=== PATIENT | female | born 1975 | race Two or more races ===

== ENCOUNTER 2017-09-01 16:06 | Outpatient (CLI) | payer OTHER ==
[~2017-09-01 16:06] MED LIST: METH500T14; [UNRECOGNIZED DRUG - CODE]
[2017-09-01 17:36] LABS: FREE T4 (FREE THYROXINE) 1.05 ng/dL (0.76-1.46); THYROID STIMULATING HORMONE 0.69 uIU/mL (0.34-3.74)
== END 2017-09-01 20:43 | disposition home or self-care (01) ==
LOC: MLB 16:06
PROVIDERS: ATTEND Family Medicine
DX: R45.83 Excessive crying of child, adolescent or adult (principal)
CPT/HCPCS: 36415; 84439; 84443

== ENCOUNTER 2017-11-03 21:23 | Emergency (ER) | payer OTHER ==
[~2017-11-03] VITALS: Ht 167.6 cm; Wt 97.5 kg
--- NOTE | 2017-11-03 21:39 | NUR ---
Patient to OF. RN evaluating patient.
[2017-11-03 21:55] VITALS: BP 143/88
--- NOTE | 2017-11-03 21:55 | NUR ---
PATIENT PRESENTS TO ED WITH C/O VOMITTING AND DIZZINESS X 1 DAY PT SKIN IS PINK/WARM/DRY; AAOX4 WITH EVEN AND STEADY GAIT; LUNGS CLEAR BL; HR EVEN AND REGULAR; PT DENIES ANY FEVER, CP, SOB, OR COUGH AT THIS TIME; PATIENT STATES PAIN OF 8/10 AT THIS TIME; VSS; PATIENT POSITIONED FOR COMFORT; HOB ELEVATED; BEDRAILS UP X2; BED DOWN. ER MD MADE AWARE OF PT STATUS.
[2017-11-03] MEDS ORDERED: ONDANSETRON 4 MG/2 ML VIAL IVP ONE (22:35)
[2017-11-03] MEDS ORDERED: NACL 0.9% 1,000 ML IV ONE (22:35)
[2017-11-03] MEDS ORDERED: KETOROLAC 30 MG/ML VIAL IVP ONE (22:35)
[2017-11-03 22:37] VITALS: BP 143/88
[2017-11-03 23:24] LABS: APPEARANCE,URINE SL CLOUDY (CLEAR); BILIRUBIN,URINE NEGATIVE (NEGATIVE); BLOOD, URINE TRACE-I (NEGATIVE); COLOR,URINE YELLOW (YELLOW); LEUKOCYTE ESTERASE ,URINE NEGATIVE (NEGATIVE); NITRITE, URINE NEGATIVE (NEGATIVE); PH,URINE 6.5 (5.0-9.0); UGLUCOSE NEGATIVE (NEGATIVE)
[2017-11-03 23:29] LABS: ALBUMIN 3.5 g/dL (3.4-5.0); ANION GAP 11.2 (8-16); CARBON DIOXIDE 25.8 mmol/L (21-32); TOTAL BILIRUBIN 0.3 mg/dL (0.0-1.0)
[2017-11-03 23:57] LABS: RBC,URINE 11-20 (MOD) /HPF (0-5); WBC,URINE 0-5 (RARE) /HPF (0-5)
--- NOTE | 2017-11-04 00:39 | NUR ---
Patient discharged with v/s stable. Written and verbal after care instructions given and explained. Patient verbalized understanding. Ambulatory with steady gait. All questions addressed prior to discharge. Advised to follow up with PMD. DISCHARGED BY DR VELÁSQUEZ
== END 2017-11-04 00:35 | disposition home or self-care (01) ==
LOC: MED 21:23
DX: S33.9XXA Sprain of unspecified parts of lumbar spine and pelvis, initial encounter (principal); Z79.899 Other long term (current) drug therapy; X58.XXXA Exposure to other specified factors, initial encounter; Y93.89 Activity, other specified; Y92.89 Other specified places as the place of occurrence of the external cause; Y99.8 Other external cause status
CPT/HCPCS: 36415; 80053; 81001; 81025; 83690; 96361; 96374; 96375; 99284; J1885; J2405; J7030

== ENCOUNTER 2018-01-20 04:30 | Inpatient (IN) | payer OTHER ==
[~2018-01-20] VITALS: Ht 167.6 cm; Wt 96.6 kg
[2018-01-20 04:37] VITALS: BP 148/89
--- NOTE | 2018-01-20 04:45 | NUR ---
PT.AMBULATED TO ER BED 10
[2018-01-20] MEDS ORDERED: KETOROLAC 30 MG/ML VIAL IVP ONE (04:50)
[2018-01-20] MEDS ORDERED: NACL 0.9% 500 ML IV ONE (04:50)
[2018-01-20] MEDS ORDERED: ONDANSETRON 4 MG/2 ML VIAL IVP ONE (04:50)
--- NOTE | 2018-01-20 05:00 | NUR ---
Dr. Bautista evaluating patient.
[2018-01-20] MEDS ORDERED: ONDANSETRON 4 MG/2 ML VIAL IM/IVP PRN (05:30)
[2018-01-20] MEDS ORDERED: HYDROcodone/APAP 7.5/325 MG 1 TAB PO PRN (05:30)
[2018-01-20] MEDS ORDERED: NACL 0.9% 1,000 ML IV SCH (05:30)
[2018-01-20] MEDS ORDERED: DOCUSATE SODIUM 100 MG GELCAP PO PRN (05:30)
[2018-01-20] MEDS ORDERED: KETOROLAC 30 MG/ML VIAL IVP PRN (05:30)
[2018-01-20] MEDS ORDERED: ACETAMINOPHEN 325 MG TAB PO PRN (05:30)
[2018-01-20] MEDS ORDERED: MORPHINE SULFATE 2 MG/ML SYR IVP PRN (05:30)
[2018-01-20 05:40] LABS: BASOPHILS # (AUTO) 0.2 K/uL (0.00-0.22); EOSINOPHILS # (AUTO) 0.2 K/uL (0-0.4); EOSINOPHILS % (AUTO) 3.2 % (0.0-4.0); HEMATOCRIT 36.1 % (36-48); HEMOGLOBIN 11.6 g/dL (12.0-16.0); LYMPHOCYTES # (AUTO) 2.8 K/uL (2.5-16.5); LYMPHOCYTES % (AUTO) 36.5 % (20.5-51.1); MEAN CORPUSCULAR HEMOGLOBIN 26 pg (27-31); MEAN CORPUSCULAR HGB CONC 32 g/dL (33-37); MEAN CORPUSCULAR VOLUME 80 fL (80-94); MONOCYTES # (AUTO) 0.6 K/uL (0.8-1.0); MONOCYTES % (AUTO) 7.9 % (1.7-9.3); NEUTROPHILS # (AUTO) 3.9 K/uL (1.8-7.7); NEUTROPHILS % (AUTO) 50.4 % (42.2-75.2); PLATELET COUNT (AUTO) 262 K/uL (140-450); RED BLOOD CELL COUNT(AUTO) 4.55 MIL/uL (4.20-5.40); RED CELL DISTRIBUTION WIDTH 13.8 % (11.6-13.7)
--- NOTE | 2018-01-20 05:46 | NUR ---
42/f BIB FAMILY MEMBER D/T ABDOMINAL PAIN RADIATING TO HER LEFT SIDE. PATIENT STATES HAVING PAIN SINCE WEDNESDAY NIGHT AFTER DINNER ACCOMPANIED BY NAUSEA AND DIARRHEA X1DAY. PATIENT VISITED PCP EARLIER TODAY BUT WAS UNABLE TO GET LAB WORK AND TESTING DONE AND CAME IN TO ED D/T WORSENING PAIN. PATIENT DENIES CRAMPING BUT STATES HAVING A MENSTRUAL FLOW OF 3 WEEKS. MD AT BEDSIDE. WILL CONTINUE TO MONITOR.
[2018-01-20] MEDS ORDERED: TRAM50TA1 PO (05:53)
[2018-01-20 05:58] LABS: ANION GAP 10.8 (8-16); CARBON DIOXIDE 27.2 mmol/L (21-32); TOTAL BILIRUBIN 0.2 mg/dL (0.0-1.0)
[2018-01-20 06:10] LABS: WHITE BLOOD COUNT (AUTO) 7.7 K/uL (4.8-10.8)
--- NOTE | 2018-01-20 07:00 | NUR ---
RECEIVED BEDSIDE REPORT FROM PATCH PRESS OPERATOR NURSE. PATIENT IS ALERT AND AWAKE X4. CURRENTLY RESTING COMFORTABLY WITH AND DAUGHTER AT BEDSIDE. NO S/S OF RESPIRATORY DISTRESS. IV SITE ON RIGHT WRIST, CLEAN, DRY AND INTACT. SKIN INTACT. ABD IS ROUND, SOFT, AND TENDER TO TOUCH IN MIDEPIGASTRIC REGION, ACTIVE BOWEL SOUNDS PRESENT. PATIENT IS NPO D/T CT SCAN W CONTRAST. WILL CONTINUE TO MONITOR. CALL LIGHT WITHIN REACH AND BED IN LOW POSITION.
[2018-01-20 07:21] LABS: APPEARANCE,URINE CLEAR (CLEAR); BILIRUBIN,URINE NEGATIVE (NEGATIVE); BLOOD, URINE 1+ (NEGATIVE); COLOR,URINE YELLOW (YELLOW); LEUKOCYTE ESTERASE ,URINE NEGATIVE (NEGATIVE); NITRITE, URINE NEGATIVE (NEGATIVE); PH,URINE 5.5 (5.0-9.0); UGLUCOSE NEGATIVE (NEGATIVE)
[2018-01-20 08:00] VITALS: BP 127/70
--- NOTE | 2018-01-20 08:00 | NUR ---
PATIENT HAS CT ABDOMEN WITH CONTRAST PENDING, NEED 20 GAUGE IV LINE PER RADIOLOGIST FOR THE CONTRAST DYE. ATTEMPTED X2 TO INSERT NEW IV LINE WITH 20 GAUGE, BOTH ATTEMPTS FAILED. HAD ANOTHER NURSE ON UNIT ATTEMPT TO INSERT NEW IV LINE X1, ATTEMPT FAILED. PATIENT TOLERATED PROCEDURES WELL. PATIENT IS HARD STICK. WILL NOTIFY MD IF CT WITH CONTRAST IS NEEDED OR IF WE CAN PERFORM CT WITHOUT CONTRAST. WILL CONTINUE TO MONITOR.
[2018-01-20 08:40] LABS: PROTHROMBIN TIME 10.3 secs (10.8-13.4)
[2018-01-20 10:00] LABS: RBC,URINE 3-10 (FEW) /HPF (0-5); WBC,URINE 0-5 (RARE) /HPF (0-5)
--- NOTE | 2018-01-20 10:00 | NUR ---
PATIENT LYING IN BED SLEEPING. NO DISTRESS NOTED. DENIES ANY PAIN. SAFETY MEASURES IN PLACE, CALL LIGHT WITHIN REACH. WILL CONTINUE TO MONITOR.
[2018-01-20 10:04] LABS: BARBITURATE, URINE NEGATIVE ng/ml (NEG <=200); BENZODIAZEPINE, URINE NEGATIVE ng/mL (NEG <=200); CANNABINOID, URINE NEGATIVE ng/mL (NEG <=50); COCAINE, URINE NEGATIVE ng/mL (NEG <=300); OPIATE, URINE NEGATIVE ng/mL (NEG <=2000); PHENCYCLIDINE SCREEN,URINE NEGATIVE ng/mL (NEG <=25)
[2018-01-20 10:08] LABS: MAGNESIUM 1.9 mg/dL (1.8-2.4)
[2018-01-20 10:09] LABS: THYROID STIMULATING HORMONE 2.91 uIU/mL (0.34-3.74)
--- NOTE | 2018-01-20 12:39 | NUR ---
PATIENT HAS BEEN SCREENED AND CATEGORIZED MODERATE NUTRITION RISK. PATIENT WILL BE SEEN WITHIN 3-5 DAYS OF ADMISSION. 01/22/18 - 01/24/[address]
--- NOTE | 2018-01-20 15:38 | NUR ---
GENERAL I FARMWORKER WAS ABLE TO START NEW IV LINE ON LEFT AC #20 ON SECOND ATTEMPT. RADIOLOGY CALLED VIA PHONE TO LET THEM KNOW THAT CT ABD CONSENTS SIGNED AND THAT PATIENT WAS ALL SE TO GO. RADIOLOGIST SAID HE WAS BUSY AT ER AT THIS TIME AND WILL COME WHEN AVAILABLE. WILL CONTINUE TO MONITOR.
[2018-01-20 16:00] VITALS: BP 137/79
--- NOTE | 2018-01-20 18:00 | NUR ---
PATIENT SITTING IN BED WITH FAMILY MEMBERS AT BEDSIDE. NO DISTRESS. PAIN WITHIN TOLERABLE. CONDITION UNCHANGED. WILL CONTINUE TO MONITOR.
--- NOTE | 2018-01-20 19:34 | NUR ---
REPORT GIVEN TO REINFORCING IRON AND REBAR WORKERS NURSE FOR CONTINUITY OF CARE. PATIENT IS IN STABLE CONDITION.
--- NOTE | 2018-01-20 19:36 | NUR ---
RECEIVED REPORT FROM NIGHT RN.PT RESTING IN BED. AAOX4. NO S/S OF ACUTE DISTRESS. PT DENIES PAIN. IV SITE PATENT AND INTACT. CALL LIGHT WITHIN REACH. SAFETY MEASURES ENSURED. WILL CONTINUE TO MONITOR.
[2018-01-20 20:00] VITALS: BP 137/78
[2018-01-20] MEDS: NACL 0.9% 1,000 ML IV SCH (20:59)
[2018-01-20] MEDS: metroNIDAZOLE 500 MG/NS PREMIX 100 ML IV SCH (21:00)
[2018-01-20] MEDS: LEVOFLOXACIN 750 MG/D5W PREMIX 150 ML IV SCH (22:05)
--- NOTE | 2018-01-20 22:37 | NUR ---
PT SLEEPING IN BED. NO S/S OF ACUTE DISTRESS. WILL CONTINUE TO MONITOR.
[2018-01-21] VITALS: BP 135/72
[2018-01-21] MEDS: NACL 0.9% 1,000 ML IV SCH ×2 (03:37→13:22)
--- NOTE | 2018-01-21 03:41 | NUR ---
PT SLEEPING IN BED. NO S/S OF ACUTE DISTRESS. WILL CONTINUE TO MONITOR.
[2018-01-21] MEDS ORDERED: HYDROcodone/APAP 5/325 MG 1 TAB TAB PO PRN (05:05)
[2018-01-21] MEDS: metroNIDAZOLE 500 MG/NS PREMIX 100 ML IV SCH ×3 (05:44→21:00)
[2018-01-21 07:11] LABS: ANION GAP 14.2 (8-16); CARBON DIOXIDE 25.2 mmol/L (21-32); CREATININE 0.9 mg/dL (0.6-1.3); POTASSIUM 4.4 mmol/L (3.5-5.1)
[2018-01-21 07:17] LABS: T4 (THYROXINE) 8.8 ug/dL (4.5-12.0)
[2018-01-21 07:53] VITALS: BP 122/67
--- NOTE | 2018-01-21 07:57 | NUR ---
PT SLEEPING IN BED. NO S/S OF ACUTE DISTRESS. PT DENIES PAIN. IV SITE PATENT AND INTACT. CALL LIGHT WITHIN REACH. WILL CONTINUE TO MONITOR.
--- NOTE | 2018-01-21 10:08 | NUR ---
PT RESTING IN BED. NO S/S OF ACUTE DISTRESS. PT DENIES PAIN. CALL LIGHT WITHIN REACH. WILL CONTINUE TO MONITOR.
--- NOTE | 2018-01-21 12:00 | NUR ---
ASSUMED CARE FROM [facility]. PT AAOX4. NO SOB NOTED. NO COMPLAINTS MADE. NPO EXCEPT MEDS MAINTAINED ORDERED.
--- NOTE | 2018-01-21 15:00 | NUR ---
SPOKE WITH DR. DOMÍNGUEZ REGARDING PT'S CONSULT WITH GI. DR. DOMÍNGUEZ STATED SHE ALREADY CALLED DR. LAWTON AND IS WAITING FOR CALL BACK. NOTIFIED PT.
[2018-01-21 16:00] VITALS: BP 140/90
--- NOTE | 2018-01-21 16:30 | NUR ---
DR. RUSH AT PT'S BEDSIDE TALKING TO PT.
--- NOTE | 2018-01-21 18:05 | NUR ---
PT TOLERATED FULL LIQUIDS WELL. NO N&V NOTED.
--- NOTE | 2018-01-21 18:45 | NUR ---
PT SEEN BY DR. GUZMAN WITH NEW ORDERS.
--- NOTE | 2018-01-21 19:00 | NUR ---
DR. MEJIA WROTE PRESCRIPTIONS FOR DISCHARGE. PT NOTIFIED. NO COMPLAINTS MADE. WILL ENDORSE TO NEXT SHIFT NURSE TO CONTINUE THE DISCHARGE PROCESS.
--- NOTE | 2018-01-21 19:30 | NUR ---
RECEIVED PT FROM DAY SHIFT NURSE CHELY-MARY KAY. PT IN BED RESTING WITH FAMILY AT BEDSIDE. NO S/S OF RESPIRATORY DISTRESS OR DISCOMFORT. IV LEFT AC @ NS 60ML/HR, PATENT AND FLUSHING WELL. AOX4, AMBULATORY. CALL LIGHT WITHIN REACH. BED IN LOWEST POSITION. WILL CONTINUE TO MONITOR.
[2018-01-21] MEDS ORDERED: CIPR500T4 PO (19:51)
[2018-01-21] MEDS ORDERED: METR250T2 PO (19:51)
[2018-01-21] MEDS ORDERED: PSYL0.4C2 PO (19:53)
[2018-01-21 19:59] VITALS: BP 137/79
--- NOTE | 2018-01-21 20:00 | NUR ---
PT AWAITING D/C. SPOKE WITH DR. MEJIA. PT REQUESTED N/V MEDICATION. WRITING RX FOR ZOFRAN.
[2018-01-21] MEDS ORDERED: ONDA4ODT1 SL (20:15)
[2018-01-21] MEDS ORDERED: LACT1.4C PO (20:16)
[2018-01-21] MEDS: LEVOFLOXACIN 750 MG/D5W PREMIX 150 ML IV SCH (21:00)
--- NOTE | 2018-01-21 21:30 | NUR ---
PT RESTING IN BED. NO S/S OF RESPIRATORY DISTRESS OR DISCOMFORT. PT STABLE AT THIS TIME. IV D/C, INTACT. ID BANDS REMOVED. DELEGATED TO POLE TRUCK DRIVER TO WHEEL PT OUT TO LOBBY WHERE PT FAMILY WAS WAITING FOR PT IN THE CAR.
== END 2018-01-21 21:30 | disposition home or self-care (01) | DRG 392 ==
LOC: MED 04:30 → MMU 05:33 → EEVIPCON 05:33
PROVIDERS: ADMIT Family Medicine Sports Medicine; ATTEND Family Medicine Sports Medicine
DX: K57.32 Diverticulitis of large intestine without perforation or abscess without bleeding (principal); E44.0 Moderate protein-calorie malnutrition; Q61.3 Polycystic kidney, unspecified; D13.4 Benign neoplasm of liver; N83.202 Unspecified ovarian cyst, left side; K52.9 Noninfective gastroenteritis and colitis, unspecified; E11.9 Type 2 diabetes mellitus without complications; R31.9 Hematuria, unspecified; Z68.34 Body mass index [BMI] 34.0-34.9, adult; Z79.899 Other long term (current) drug therapy; Z84.1 Family history of disorders of kidney and ureter
CPT/HCPCS: 36415; 71045; 76770; 80048; 80053; 80305; 81001; 82140; 82150; 83036; 83690; 83735; 84100; 84436; 84443; 84479; 85025; 85610; 85730; 87081; 93005; 96374; 96375; 99285; J1885; J1956; J2405; J3490; J7030; Q0092; Q9967

== ENCOUNTER 2018-07-06 06:09 | Day surgery (SDC) | payer OTHER ==
[~2018-07-06] VITALS: Ht 167.6 cm; Wt 94.8 kg
[~2018-07-06 06:09] MED LIST changes: +CIPR500T4 PO; +LACT1.4C PO; +METR250T2 PO; +ONDA4ODT1 SL; +PSYL0.4C2 PO; +TRAM50TA1 PO; -[UNRECOGNIZED DRUG - CODE]
[2018-07-06] MEDS ORDERED: ACETAMINOPHEN/CODEINE 300/30MG 1 TAB PO PRN (08:45)
[2018-07-06] MEDS ORDERED: MORPHINE SULFATE 4 MG/ML SYR IM/IVP PRN (08:45)
[2018-07-06] MEDS ORDERED: ONDANSETRON 4 MG/2 ML VIAL IVP PRN (08:45)
[2018-07-06] MEDS ORDERED: IBUPROFEN 800 MG TAB PO PRN (08:45)
[2018-07-06] MEDS ORDERED: PROPOFOL 200 MG/20 ML VIAL IV ONE (10:40)
[2018-07-06] MEDS ORDERED: DEXAMETHASONE 4 MG/ML VIAL ONE (10:40)
[2018-07-06] MEDS ORDERED: ONDANSETRON 4 MG/2 ML VIAL ONE (10:40)
[2018-07-06] MEDS ORDERED: MIDAZOLAM 2 MG/2 ML VIAL ONE (10:46)
[2018-07-06] MEDS ORDERED: fentaNYL 0.05 MG/ML VIAL ONE (10:46)
[2018-07-06] MEDS ORDERED: MEPERIDINE 25 MG/ML SYR ONE (10:47)
== END 2018-07-06 13:20 | disposition home or self-care (01) ==
LOC: MDS 06:09 → MMU 06:11 → MDS 13:20
PROVIDERS: ATTEND Obstetrics & Gynecology
DX: N92.1 Excessive and frequent menstruation with irregular cycle (principal); E11.9 Type 2 diabetes mellitus without complications; E66.9 Obesity, unspecified; Z68.33 Body mass index [BMI] 33.0-33.9, adult; F15.90 Other stimulant use, unspecified, uncomplicated; Z79.899 Other long term (current) drug therapy; Z84.1 Family history of disorders of kidney and ureter; Z82.49 Family history of ischemic heart disease and other diseases of the circulatory system; Z82.0 Family history of epilepsy and other diseases of the nervous system
CPT/HCPCS: 58120; J1100; J2175; J2250; J2405; J2704; J3010; J7120